=== PATIENT | female | born 1990 | race Hispanic/Latino ===

== ENCOUNTER 2020-10-03 18:38 | Inpatient (IN) | payer BC ==
[2020-10-03 19:20] VITALS: BMI 31.3
[2020-10-03] MEDS ORDERED: hydrALAZINE 20 MG/ML VIAL SLOW IVP PRN ×2 (19:37→21:15)
[2020-10-03] MEDS ORDERED: Acetaminophen 500 MG TAB PO PRN (19:38)
[2020-10-03 20:21] LABS: #Basophils 0.1 10x3/uL (0.0-0.2); #Monocytes 1.5 10x3/uL (0.0-1.1); #Neutrophils 13.5 10x3/uL (1.5-8.4); %Basophils 0.4 % (0.0-2.0); %Eosinophils 0.1 % (0.0-6.0); %Monocytes 8.6 % (0.0-10.0); %Neutrophils 78.8 % (40.0-75.0); Hemoglobin 11.8 g/dL (12.0-15.5); Mean Corpuscular HGB CONC 34.5 g/dL (32.0-36.0); Mean Corpuscular Hemoglobin 31.6 pg (27.0-33.0); Mean Corpuscular Volume 91.7 fl (81.6-98.3); Mean Platelet Volume 10.4 fl (7.4-10.4); Platelet Count 243 10x3/uL (150-450); RBC Distribution Width 13.6 % (11.5-14.5); Red Blood Cell (RBC) Count 3.73 10x6/uL (3.90-5.03); White Blood Cell (WBC) Count 17.1 10x3/uL (3.5-10.5)
[2020-10-03 20:34] LABS: Anion Gap 16 mmol/L (10-20); BUN (Urea Nitrogen) Less than 4 mg/dL (7.0-18.7); Calc. Creatinine Clearance 196 mL/min (70-130); Calcium 9.3 mg/dL (7.8-10.44); Carbon Dioxide 18 mmol/L (22-29); Chloride 105 mmol/L (98-107); Glucose 79 mg/dL (70-105); Sodium 135 mmol/L (136-145)
[2020-10-03 20:44] LABS: Bilirubin Neg (Negative); Blood, Urine 25 (Negative); Clarity Clear (Clear); Glucose, Urine (Dipstick) Normal (Negative); Ketone, Urine 150 mg/dL (Negative); Leukocyte 100 (Negative); Nitrite Negative (Negative); Protein, Urine (Dipstick) Negative (Neg-Trace); Urobilinogen Normal mg/dL (Less than 2)
[2020-10-03 20:46] LABS: Urine Culture Reflex No No
[2020-10-03 20:51] LABS: RBC/HPF 0-3 HPF (0-3); Squamous Epithelial 0-3 HPF (0-3); WBC/HPF 0-3 HPF (0-3)
[2020-10-03 20:52] LABS: Bacteria/HPF Rare-Few HPF (None Seen)
[2020-10-03] MEDS ORDERED: Lactated Ringer's 1,000 ML IV SCH ×2 (21:15)
[2020-10-03] MEDS ORDERED: Zolpidem Tartrate 5 MG TAB PO PRN (21:15)
[2020-10-03] MEDS ORDERED: Promethazine HCl 25 MG/ML VIAL IM PRN (21:15)
[2020-10-03] MEDS ORDERED: Ondansetron PF 4 MG/2 ML Vial IVP PRN (21:15)
[2020-10-03] MEDS ORDERED: cefTRIAXone\\ROCEPHIN 2 GM in Sodium Chloride 0.9% 100 ML IVPB SCH (21:30)
[2020-10-03] MEDS: Lactated Ringer's 1,000 ML IV SCH (23:55)
[2020-10-04] MEDS: Lactated Ringer's 1,000 ML IV SCH ×9 (01:41→21:52)
[2020-10-04] MEDS: cefTRIAXone\\ROCEPHIN 1 GM in Sodium Chloride 0.9% 100 ML IVPB SCH ×2 (08:45→21:24)
[2020-10-04] MEDS: Sodium Chloride 0.9% 1,000 ML IV SCH ×2 (15:30→16:39)
[2020-10-04] MEDS ORDERED: cefTRIAXone\\ROCEPHIN 1 GM VIAL ONE (21:08)
[2020-10-05] MEDS: Lactated Ringer's 1,000 ML IV SCH ×3 (02:20→04:22)
[2020-10-05] MEDS: Sodium Chloride 0.9% 1,000 ML IV SCH ×3 (02:21→18:56)
[2020-10-05] MEDS: cefTRIAXone\\ROCEPHIN 1 GM in Sodium Chloride 0.9% 100 ML IVPB SCH ×2 (08:31→20:42)
[2020-10-05] MEDS ORDERED: cefTRIAXone\\ROCEPHIN 1 GM VIAL ONE (20:35)
[2020-10-06] MEDS: Sodium Chloride 0.9% 1,000 ML IV SCH (03:01)
[2020-10-06 04:15] VITALS: TEMP 98
[2020-10-06 08:06] VITALS: BP 101/56
[2020-10-06] MEDS ORDERED: Nitrofurantoin Monohyd/M-Cryst 100 MG CAP PO SCH (09:00)
== END 2020-10-06 09:10 | disposition home or self-care (01) | DRG 833 ==
LOC: CSHLD/OP 18:38 → CSHLD 21:46 → CSHANTE 10-04 12:14
PROVIDERS: ADMIT Student in an Organized Health Care Education/Training Program; ATTEND Student in an Organized Health Care Education/Training Program
PROC: 4A0HXCZ Measurement of Products of Conception, Cardiac Rate, External Approach (ICD-10-PCS; principal; 2020-10-03)
DX: O23.03 Infections of kidney in pregnancy, third trimester (principal); B96.20 Unspecified Escherichia coli [E. coli] as the cause of diseases classified elsewhere; Z3A.32 32 weeks gestation of pregnancy
CPT/HCPCS: 36415; 36416; 59025; 76770; 80048; 81001; 83605; 85025; 86850; 86900; 86901; 87077; 87086; 87186; 99285; J0696; J3490

== ENCOUNTER 2022-11-23 20:20 | Emergency (ER) | payer BC ==
[2022-11-23] MEDS ORDERED: Metoclopramide HCl 10 MG/2 ML VIAL ONE (21:20)
[2022-11-23 21:47] LABS: #Basophils 0.1 10x3/uL (0.0-0.2); #Monocytes 0.6 10x3/uL (0.0-1.1); #Neutrophils 10.5 10x3/uL (1.5-8.4); %Basophils 0.5 % (0.0-2.0); %Eosinophils 0.2 % (0.0-6.0); %Lymphocytes 12.5 % (18.0-47.0); %Monocytes 4.9 % (0.0-10.0); Hemoglobin 11.9 g/dL (12.0-15.5); Mean Corpuscular HGB CONC 33.9 g/dL (32.0-36.0); Mean Corpuscular Hemoglobin 31.2 pg (27.0-33.0); Mean Corpuscular Volume 91.9 fl (81.6-98.3); Mean Platelet Volume 10.3 fl (7.4-10.4); Platelet Count 242 10x3/uL (150-450); RBC Distribution Width 13.8 % (11.5-14.5); Red Blood Cell (RBC) Count 3.82 10x6/uL (3.90-5.03)
[2022-11-23 21:56] LABS: Bilirubin Neg (Negative); Blood, Urine Negative (Negative); Clarity Clear (Clear); Glucose, Urine (Dipstick) Normal (Negative); Ketone, Urine 150 mg/dL (Negative); Leukocyte 25 (Negative); Nitrite Negative (Negative); Protein, Urine (Dipstick) Negative (Neg-Trace); Specific Gravity, Urine 1.015 (1.005-1.030); Urobilinogen Normal mg/dL (Less than 2)
[2022-11-23 22:00] LABS: ALT (SGPT) 12 U/L (8-55); AST (SGOT) 14 U/L (5-34); Albumin 3.4 g/dL (3.5-5.0); Alkaline Phosphatase 79 U/L (40-110); Anion Gap 14 mmol/L (10-20); BUN (Urea Nitrogen) Less than 4 mg/dL (7.0-18.7); Bilirubin, Total 0.3 mg/dL (0.2-1.2); Calc. Creatinine Clearance 0 mL/min (70-130); Calcium 8.8 mg/dL (7.8-10.44); Carbon Dioxide 21 mmol/L (22-29); Chloride 106 mmol/L (98-107); Estimated GFR 123; Glucose 87 mg/dL (70-105); Potassium 3.5 mmol/L (3.5-5.1); Protein, Total 6.4 g/dL (6.0-8.3); Sodium 137 mmol/L (136-145)
[2022-11-23 22:02] LABS: Bacteria/HPF 1+ HPF (None Seen); CAUTI Indications for Culture Fever or rigors; RBC/HPF 0-3 HPF (0-3); Squamous Epithelial 0-3 HPF (0-3)
[2022-11-23 22:04] LABS: Urine Culture Reflex Yes Yes
[2022-11-23 22:35] LABS: SARS-CoV-2 NAA Rapid Test Not Detected (NotDetected)
[2022-11-23] MEDS ORDERED: cefTRIAXone (ROCEPHIN) 1 GM VIAL ONE (22:36)
[2022-11-23] MEDS ORDERED: Acetaminophen 500 MG TAB ONE (22:40)
== END 2022-11-23 22:21 | disposition home or self-care (01) ==
LOC: CSHERS 20:20
DX: R51.9 Headache, unspecified (principal); N39.0 Urinary tract infection, site not specified; D72.829 Elevated white blood cell count, unspecified; Z20.822 Contact with and (suspected) exposure to COVID-19
CPT/HCPCS: 80053; 81001; 85025; 87086; 96374; 96375; J0696; J2765

== ENCOUNTER 2023-01-12 08:08 | Inpatient (IN) | payer BC ==
[~2023-01-12 08:08] MED LIST: Bupivacaine 0.25% HCL 30 ML VIAL ONE
[2023-01-12 08:32] VITALS: BMI 31.3
[2023-01-12] MEDS ORDERED: Carboprost 250 MCG/ML AMP IM PRN (08:53)
[2023-01-12] MEDS ORDERED: Tranexamic Acid 1,000 MG/10 ML VIAL IVP PRN (08:53)
[2023-01-12] MEDS ORDERED: Diphenoxylate HCl/Atropine Tablet PO PRN (08:53)
[2023-01-12] MEDS ORDERED: Methylergonovine 0.2 MG/ML VIAL IM PRN (08:53)
[2023-01-12] MEDS ORDERED: Ibuprofen 800 MG TAB PO PRN (08:53)
[2023-01-12] MEDS ORDERED: hydrALAZINE 20 MG/ML VIAL SLOW IVP PRN ×2 (08:53→16:24)
[2023-01-12] MEDS ORDERED: Lidocaine 1% (PF) 30 ML VIAL SC PRN (08:53)
[2023-01-12] MEDS ORDERED: Ondansetron PF 4 MG/2 ML Vial IVP PRN ×3 (08:53→16:24)
[2023-01-12] MEDS ORDERED: Promethazine HCl 25 MG/ML VIAL IM PRN ×3 (08:53→16:24)
[2023-01-12] MEDS ORDERED: fentaNYL 50 mcg/mL 1 mL Vial SLOW IVP PRN (08:53)
[2023-01-12] MEDS ORDERED: Misoprostol 200 MCG TAB PR PRN (08:53)
[2023-01-12] MEDS ORDERED: Acetaminophen 500 MG TAB PO PRN (08:53)
[2023-01-12] MEDS ORDERED: NS w/ Oxytocin 30 units 500 ML IV SCH ×2 (09:00)
[2023-01-12 09:49] LABS: Hematocrit 36.8 % (34.9-44.5); Hemoglobin 12.8 g/dL (12.0-15.5); Mean Corpuscular HGB CONC 34.8 g/dL (32.0-36.0); Mean Corpuscular Hemoglobin 31.1 pg (27.0-33.0); Mean Corpuscular Volume 89.3 fl (81.6-98.3); Mean Platelet Volume 10.8 fl (7.4-10.4); Platelet Count 253 10x3/uL (150-450); RBC Distribution Width 13.6 % (11.5-14.5); Red Blood Cell (RBC) Count 4.12 10x6/uL (3.90-5.03); White Blood Cell (WBC) Count 12.7 10x3/uL (3.5-10.5)
[2023-01-12 09:53] LABS: Hep B Surf Ag - L&D Non-Reactive S/CO (NonReactive); Syphilis Antibody Nonreactive (Nonreactive)
[2023-01-12] MEDS ORDERED: fentaNYL/Ropivacaine Epidural 100 ML ONE (10:13)
[2023-01-12] MEDS ORDERED: Lactated Ringer's 500 ML IV PRN (10:52)
[2023-01-12] MEDS ORDERED: diphenhydrAMINE 50 MG/ML VIAL IVP PRN (10:52)
[2023-01-12] MEDS ORDERED: Acetaminophen 325 MG TAB PO PRN (10:52)
[2023-01-12] MEDS ORDERED: Moisturizing Cream (Eucerin) 113 GM JAR TOP PRN (10:52)
[2023-01-12] MEDS ORDERED: ePHEDrine Sulfate 50 MG/10 ML VIAL SLOW IVP PRN (10:52)
[2023-01-12] MEDS ORDERED: Naloxone HCl 0.4 mg/ml Vial IVP PRN ×2 (10:52)
[2023-01-12] MEDS ORDERED: fentaNYL 2 mcg/Ropivacaine 0.2% Epidural 100 ML CADD EPIDURAL SCH (11:00)
[2023-01-12] MEDS ORDERED: Communication Order-Pharmacy FS SCH (11:00)
[2023-01-12] MEDS ORDERED: Benzocaine-Menthol 82.5 ML CAN TOP PRN (16:24)
[2023-01-12] MEDS ORDERED: HYDROcodone/Acetaminophen 5/325 mg Tablet PO PRN ×2 (16:24)
[2023-01-12] MEDS ORDERED: Preparation H Ointment 28 GM TUBE PR PRN (16:24)
[2023-01-12] MEDS ORDERED: Boostrix 0.5 ML (Tdap) VIAL (>/=7 yrs of age) IM ONE (16:24)
[2023-01-12] MEDS ORDERED: Lanolin Ointment 7 GM TUBE TOP PRN (16:24)
[2023-01-12] MEDS ORDERED: Bisacodyl 10 MG SUPP PR PRN (16:24)
[2023-01-12] MEDS ORDERED: diphenhydrAMINE 25 MG CAP PO PRN (16:24)
[2023-01-12] MEDS ORDERED: Milk Of Magnesia 30 ML UDCUP PO PRN (16:24)
[2023-01-12] MEDS: Ferrous Sulfate 325 MG TAB PO SCH (18:05)
[2023-01-12] MEDS: Docusate 100 MG CAP PO SCH (21:10)
[2023-01-12] MEDS: Ibuprofen 800 MG TAB PO SCH (21:10)
[2023-01-13] MEDS: Ibuprofen 800 MG TAB PO SCH ×2 (05:15→13:14)
[2023-01-13] MEDS ORDERED: Prenatal Vitamin 1 TAB PO SCH (09:00)
[2023-01-13] MEDS: Docusate 100 MG CAP PO SCH (09:03)
[2023-01-13] MEDS: Ferrous Sulfate 325 MG TAB PO SCH (09:03)
[2023-01-13 16:37] VITALS: BP 110/71; TEMP 97.9
== END 2023-01-13 16:55 | disposition home or self-care (01) | DRG 807 ==
LOC: CSHLD/OP 08:08 → CSHLD 08:54 → CSHPP 16:05
PROVIDERS: ADMIT Student in an Organized Health Care Education/Training Program; ATTEND Student in an Organized Health Care Education/Training Program
PROC: 10E0XZZ Delivery of Products of Conception, External Approach (ICD-10-PCS; principal; 2023-01-12)
DX: O80 Encounter for full-term uncomplicated delivery (principal); Z37.0 Single live birth; Z3A.39 39 weeks gestation of pregnancy; Z14.1 Cystic fibrosis carrier
CPT/HCPCS: 51702; 85027; 86780; 86850; 86900; 86901; 87340; 99285; J2590; S0020

== ENCOUNTER 2023-01-14 16:09 | Observation (INO) | payer BC ==
[2023-01-14 17:05] LABS: Bilirubin Neg (Negative); Blood, Urine 50 (Negative); Clarity Clear (Clear); Glucose, Urine (Dipstick) Normal (Negative); Ketone, Urine Negative (Negative); Leukocyte 25 (Negative); Nitrite Negative (Negative); Protein, Urine (Dipstick) Negative (Neg-Trace); Specific Gravity, Urine 1.005 (1.005-1.030); Urobilinogen Normal mg/dL (Less than 2)
[2023-01-14 17:09] LABS: Hemoglobin 14.5 g/dL (12.0-15.5); Mean Corpuscular HGB CONC 33.7 g/dL (32.0-36.0); Mean Corpuscular Hemoglobin 31.3 pg (27.0-33.0); Mean Corpuscular Volume 92.9 fl (81.6-98.3); Mean Platelet Volume 10.8 fl (7.4-10.4); Platelet Count 276 10x3/uL (150-450); RBC Distribution Width 13.8 % (11.5-14.5); Red Blood Cell (RBC) Count 4.63 10x6/uL (3.90-5.03); White Blood Cell (WBC) Count 26.7 10x3/uL (3.5-10.5)
[2023-01-14 17:14] LABS: Bacteria/HPF Rare-Few HPF (None Seen); CAUTI Indications for Culture Pelvic or flank pain; RBC/HPF 0-3 HPF (0-3); Squamous Epithelial 0-3 HPF (0-3); Urine Culture Reflex No No; WBC/HPF 0-3 HPF (0-3)
[2023-01-14 17:22] LABS: ALT (SGPT) 16 U/L (8-55); AST (SGOT) 17 U/L (5-34); Albumin 3.8 g/dL (3.5-5.0); Alkaline Phosphatase 133 U/L (40-110); Anion Gap 17 mmol/L (10-20); BUN (Urea Nitrogen) 9 mg/dL (7.0-18.7); Bilirubin, Total 0.7 mg/dL (0.2-1.2); Calc. Creatinine Clearance 0 mL/min (70-130); Calcium 10.2 mg/dL (7.8-10.44); Carbon Dioxide 23 mmol/L (22-29); Chloride 103 mmol/L (98-107); Estimated GFR 116; Globulin 3.6 g/dL (2.4-3.5); Glucose 90 mg/dL (70-105); Potassium 4.2 mmol/L (3.5-5.1); Protein, Total 7.4 g/dL (6.0-8.3); Sodium 139 mmol/L (136-145)
[2023-01-14 17:39] LABS: MDiff Complete? YES
[2023-01-14 17:51] LABS: Band 2 % (5-11); Lymphocytes 5 % (21-51); Neutrophil 93 % (42-75)
[2023-01-14 17:52] LABS: RBC Morph Comment Within Normal Limits
[2023-01-14 17:53] LABS: Platelet Adequacy Comment Appears Adequate
[2023-01-14] MEDS ORDERED: cefTRIAXone (ROCEPHIN) 1 GM VIAL ONE (18:51)
[2023-01-14] MEDS ORDERED: Ketorolac Tromethamine 30 MG/ML VIAL ONE (19:47)
[2023-01-14] MEDS ORDERED: Piperacillin/Tazobactam 3.375 GM VIAL ONE (19:48)
[2023-01-14 20:00] LABS: Lactic Acid 1.4 mmol/L (0.5-2.2)
[2023-01-14] MEDS ORDERED: Bupivacaine PF 0.5% 30 ML VIAL ONE (20:01)
[2023-01-14] MEDS ORDERED: EPINEPHrine 1 MG/ML AMP ONE (20:01)
[2023-01-14] MEDS ORDERED: traMADol HCl 50 MG TAB PO PRN (20:40)
[2023-01-14] MEDS ORDERED: Ondansetron PF 4 MG/2 ML Vial IVP PRN (20:40)
[2023-01-14] MEDS ORDERED: SUGAMMADEX SODIUM 200 MG/2 ML VIAL ONE (21:26)
[2023-01-14] MEDS ORDERED: Ibuprofen 200 MG TAB PO PRN (23:05)
[2023-01-15] MEDS: Acetaminophen 325 MG TAB PO SCH ×3 (00:05→12:21)
[2023-01-15] MEDS: Lactated Ringer's 1,000 ML IV SCH ×2 (00:05→12:25)
[2023-01-15] MEDS ORDERED: Piperacillin/Tazobactam 3.375 GM in Sodium Chloride 0.9% 100 ML IVPB SCH ×2 (07:00→11:00)
[2023-01-15 11:27] VITALS: BP 95/64; TEMP 97.8
== END 2023-01-15 15:30 | disposition home or self-care (01) ==
LOC: CSHERS 16:09 → CSHPP 22:56
PROVIDERS: ADMIT Surgery; ATTEND Surgery
PROC: 0DTJ4ZZ Resection of Appendix, Percutaneous Endoscopic Approach (ICD-10-PCS; principal; 2023-01-14)
DX: K35.30 Acute appendicitis with localized peritonitis, without perforation or gangrene (principal); J98.11 Atelectasis
CPT/HCPCS: 36415; 74177; 80053; 81001; 83605; 85025; 87040; 87086; 88304; 96361; 96365; 96375; J0171; J0696; J1100; J1170; J1650; J1885; J2370; J2405; J2543; J2704; J2765; J3010; J3490; J7120; S0020